=== PATIENT | male | born 1970 | race Caucasian/White ===

== ENCOUNTER 2019-02-01 15:35 | Emergency (ER) | payer OTHER ==
[~2019-02-01] VITALS: Wt 81.6 kg
[~2019-02-01 15:35] MED LIST: ACETAMINOPHEN650 M5 PO; ALLERGY10 MG PO; AMANTADINE HCL100 M1 PO; ATENOLOL50 MG PO; ATIVAN1 MG PO; BENADRYL50 MG PO; BENZTROPINE MESY2 MG PO; CLONAZEPAM1 MG PO; COGENTIN1 MG PO; DEPAKOTE ER500 MG PO; DEPAKOTE500 M1 PO; DICYCLOMINE HCL10 MG PO; DUONEB 3 MG/3 ML3 M1 INH; Depakote ER500 MG PO; GABAPENTIN300 M1 PO; GEMFIBROZIL600 MG PO; GEODON80 MG PO; HALOPERIDOL5 MG PO; HEP-FORTE1 CAP PO; HYDROXYZINE50 MG; INVEGA SUSTENN117 MG IM; INVEGA6 MG PO; LEVETIRACETAM500 M1 PO; LISINOPRIL10 MG PO; LITHIUM CARBON300 M2 PO; LITHOBID300 MG PO; LOPRESSOR25 MG PO; LORAZEPAM1 MG PO; MULTIVITAMIN1 CTB PO; MULTIVITAMIN1 TA1 PO; Mysoline50 MG PO; PRILOSEC40 MG PO; RISPERDAL3 MG PO; SENNA PLUS 50 M1 TA1 PO; TAMSULOSIN HCL0.4 MG PO; TERAZOSIN HCL5 MG PO; TRAZODONE HCL300 MG PO; TRAZODONE HYDR150 MG PO; VENTOLIN0.09 MG/AC; VERAMYST27.5 MCG/A; VITAMIN B COMPL1 CAP PO
[2019-02-01] MEDS ORDERED: Ranitidine Hyd150 MG PO (15:56)
[2019-02-01] MEDS ORDERED: NEURONTIN300 MG PO (15:56)
[2019-02-01] MEDS ORDERED: PRINIVIL20 M1 PO (15:56)
[2019-02-01] MEDS ORDERED: OMEPRAZOLE40 MG PO (15:57)
[2019-02-01] MEDS ORDERED: DEPAKOTE ER250 MG PO (15:57)
[2019-02-01] MEDS ORDERED: FLOMAX0.4 MG PO (15:58)
[2019-02-01] MEDS ORDERED: SEROQUEL300 MG PO (15:58)
[2019-02-01] MEDS ORDERED: SINGULAIR4 MG PO (15:58)
[2019-02-01] MEDS ORDERED: Depakote ER500 MG PO (15:58)
[2019-02-01 16:36] LABS: BASO # 0.1 10*3/uL (0.0-0.1); BASO % 0.6 % (0.0-1.0); EOS # 0.1 10*3/uL (0.0-0.4); EOS % 0.6 % (1.0-4.0); HEMATOCRIT 42.8 % (42.0-52.0); HEMOGLOBIN 14.7 g/dl (14.0-18.0); LYMPH # 3.8 10*3/uL (1.3-4.4); LYMPH % 31.3 % (27.0-41.0); MEAN CELL VOLUME 95.3 fl (80.0-94.0); MEAN CORPUSCULAR HGB 32.7 pg (27.0-31.0); MEAN CORPUSCULAR HGB CONC 34.3 g/dl (33.0-37.0); MEAN PLATELET VOLUME 12.1 fl (9.6-12.3); MONO % 8.5 % (3.0-9.0); NEUT # 7.2 10*3/uL (2.3-7.9); NEUT % 58.8 % (47.0-73.0); PLATELET COUNT AUTOMATED 237 10*3/uL (130-400); RED BLOOD COUNT 4.49 10*6/uL (4.50-5.90); RED CELL DISTRI WIDTH 13.7 % (0-14.5); WHITE BLOOD COUNT 12.2 10*3/uL (4.8-10.8)
[2019-02-01 16:50] LABS: BILIRUBIN NEGATIVE (NEGATIVE); BLOOD NEGATIVE (NEGATIVE); CLARITY CLEAR (CLEAR); COLOR YELLOW (YELLOW); GLUCOSE NEGATIVE (NEGATIVE); KETONE NEGATIVE (NEGATIVE); LEUKO ESTERASE NEGATIVE (NEGATIVE); NITRITE NEGATIVE (NEGATIVE); SPECIFIC GRAVITY <= 1.005 (1.005-1.030); UROBILINOGEN 0.2 E.U./dl (0.2-1.0)
[2019-02-01 16:54] LABS: ALKALINE PHOSPHATASE 66 U/L (45-117); BUN 10 mg/dl (7-24); CHLORIDE 109 mmol/L (98-107); CREATININE 0.76 mg/dL (0.70-1.30); POTASSIUM 3.7 mmol/L (3.5-5.1); SGOT/AST 16 IU/L (3-35); SGPT/ALT 35 U/L (12-78); SODIUM 142 mmol/L (136-145); TOTAL PROTEIN 7.1 gm/dL (6.4-8.2)
[2019-02-01 16:56] LABS: BACTERIA TRACE; EPITHELIAL CELLS 0-2; WBC 0-2 wbc/hpf (0-5)
[2019-02-01 16:58] LABS: URINE AMPHETAMINES < 1000 (1000ng/ml); URINE BARBITURATES < 200 (200ng/ml); URINE BENZODIAZEPINES < 200 (200ng/ml); URINE CANNABINOIDS (THC) < 50 (50ng/ml); URINE COCAINE < 300 (300ng/ml); URINE METHADONE < 300 (300ng/ml); URINE OPIATES < 300 (300ng/ml)
[2019-02-01 16:58] LABS: ACETAMINOPHEN (TYLENOL) < 5.0 ug/ml (10-30); ETHYL ALCOHOL < 3.0 mg/dl (<3)
[2019-02-01 16:59] LABS: URINE PHENCYCLIDINE < 25 (25ng/ml)
[2019-02-01 17:02] LABS: THYROID STIM HORMONE (HS) 0.983 uIU/ml (0.358-4.75)
== END 2019-02-02 00:20 | disposition home health service (06) ==
LOC: ED 15:35
PROVIDERS: Emergency Medicine
DX: F25.8 Other schizoaffective disorders (principal); F91.8 Other conduct disorders; Z90.49 Acquired absence of other specified parts of digestive tract; Z79.899 Other long term (current) drug therapy; Z88.0 Allergy status to penicillin; Z88.1 Allergy status to other antibiotic agents; Z88.8 Allergy status to other drugs, medicaments and biological substances

== ENCOUNTER 2019-04-12 12:25 | Emergency (ER) | payer OTHER ==
[~2019-04-12] VITALS: Ht 185.4 cm; Wt 102.1 kg
[~2019-04-12 12:25] MED LIST changes: +DEPAKOTE ER250 MG PO; +FLOMAX0.4 MG PO; +NEURONTIN300 MG PO; +OMEPRAZOLE40 MG PO; +PRINIVIL20 M1 PO; +Ranitidine Hyd150 MG PO; +SEROQUEL300 MG PO; +SINGULAIR4 MG PO
[2019-04-12 12:49] LABS: BASO # 0.1 10*3/uL (0.0-0.1); BASO % 0.6 % (0.0-1.0); EOS # 0.1 10*3/uL (0.0-0.4); HEMATOCRIT 44.2 % (42.0-52.0); LYMPH # 4.3 10*3/uL (1.3-4.4); LYMPH % 34.9 % (27.0-41.0); MEAN CELL VOLUME 94.4 fl (80.0-94.0); MEAN CORPUSCULAR HGB 32.1 pg (27.0-31.0); MEAN CORPUSCULAR HGB CONC 33.9 g/dl (33.0-37.0); MEAN PLATELET VOLUME 10.8 fl (9.6-12.3); MONO # 0.7 10*3/uL (0.1-1.0); MONO % 5.6 % (3.0-9.0); NEUT # 7.1 10*3/uL (2.3-7.9); NEUT % 57.3 % (47.0-73.0); PLATELET COUNT AUTOMATED 244 10*3/uL (130-400); RED BLOOD COUNT 4.68 10*6/uL (4.50-5.90); RED CELL DISTRI WIDTH 13.2 % (0-14.5); WHITE BLOOD COUNT 12.4 10*3/uL (4.8-10.8)
[2019-04-12 13:00] LABS: BUN 8 mg/dl (7-24); CHLORIDE 105 mmol/L (98-107); CREATININE 0.76 mg/dL (0.70-1.30); POTASSIUM 4.1 mmol/L (3.5-5.1); SODIUM 139 mmol/L (136-145)
[2019-04-12 13:00] LABS: BILIRUBIN NEGATIVE (NEGATIVE); BLOOD NEGATIVE (NEGATIVE); CLARITY CLEAR (CLEAR); COLOR YELLOW (YELLOW); GLUCOSE NEGATIVE (NEGATIVE); KETONE NEGATIVE (NEGATIVE); LEUKO ESTERASE NEGATIVE (NEGATIVE); NITRITE NEGATIVE (NEGATIVE); SPECIFIC GRAVITY <= 1.005 (1.005-1.030); UROBILINOGEN 0.2 E.U./dl (0.2-1.0)
[2019-04-12 13:03] LABS: ACETAMINOPHEN (TYLENOL) < 5.0 ug/ml (10-30); ETHYL ALCOHOL < 3.0 mg/dl (<3)
[2019-04-12 13:07] LABS: URINE AMPHETAMINES < 1000 (1000ng/ml); URINE BARBITURATES < 200 (200ng/ml); URINE BENZODIAZEPINES < 200 (200ng/ml); URINE CANNABINOIDS (THC) < 50 (50ng/ml); URINE COCAINE < 300 (300ng/ml); URINE METHADONE < 300 (300ng/ml); URINE OPIATES < 300 (300ng/ml)
[2019-04-12 13:11] LABS: URINE PHENCYCLIDINE < 25 (25ng/ml)
[2019-04-12 13:15] LABS: EPITHELIAL CELLS 0-2
== END 2019-04-12 22:07 | disposition home health service (06) ==
LOC: ED 12:25
PROVIDERS: Emergency Medicine
DX: F25.9 Schizoaffective disorder, unspecified (principal); Z88.0 Allergy status to penicillin; Z88.1 Allergy status to other antibiotic agents; Z88.8 Allergy status to other drugs, medicaments and biological substances; Z79.899 Other long term (current) drug therapy; Z90.49 Acquired absence of other specified parts of digestive tract

== ENCOUNTER 2024-12-31 22:08 | Emergency (ER) | payer OTHER ==
[~2024-12-31] VITALS: Wt 120.2 kg
[2024-12-31 23:52] LABS: BASO % 0.4 % (0.0-1.0); EOS # 0.2 10*3/uL (0.0-0.4); EOS % 1.8 % (1.0-4.0); HEMATOCRIT 41.7 % (42.0-52.0); MEAN CELL VOLUME 94.8 fl (80.0-94.0); MEAN CORPUSCULAR HGB 31.4 pg (27.0-31.0); MEAN CORPUSCULAR HGB CONC 33.1 g/dl (33.0-37.0); MEAN PLATELET VOLUME 10.8 fl (9.6-12.3); MONO % 9.9 % (3.0-9.0); NEUT # 4.1 10*3/uL (2.3-7.9); NEUT % 42.2 % (47.0-73.0); PLATELET COUNT AUTOMATED 175 10*3/uL (130-400); RED CELL DISTRI WIDTH 14.2 % (0-14.5); WHITE BLOOD COUNT 9.7 10*3/uL (4.8-10.8)
[2025-01-01 00:12] LABS: BUN 11 mg/dl (9-23); CHLORIDE 103 mmol/L (98-107); POTASSIUM 4.2 mmol/L (3.4-5.1)
[2025-01-01 04:08] LABS: BILIRUBIN Negative (Negative); BLOOD Negative (Negative); COLOR Yellow (Yellow); GLUCOSE 3+ (Negative); KETONE Negative (Negative); LEUKO ESTERASE Negative (Negative); NITRITE Negative (Negative)
[2025-01-01 04:22] LABS: CLARITY Clear (Clear); EPITHELIAL CELLS 16-20; RBC 0-2 rbc/hpf (0-2); WBC 0-2 wbc/hpf (0-5)
[2025-01-01 04:28] LABS: URINE AMPHETAMINES Negative (1000ng/ml); URINE BARBITURATES Negative (200ng/ml); URINE BENZODIAZEPINES Negative (200ng/ml); URINE CANNABINOIDS (THC) Negative (50ng/ml); URINE COCAINE Negative (300ng/ml); URINE METHADONE Negative (300ng/ml); URINE OPIATES Negative (300ng/ml); URINE PHENCYCLIDINE Negative (25ng/ml)
[2025-01-01] MEDS ORDERED: VIBRAMYCIN100 MG PO (06:06)
[2025-01-01] MEDS ORDERED: Doxycycline Hyclate 100 MG CAPSULE PO ONE (06:10)
== END 2025-01-01 06:30 | disposition home or self-care (01) ==
LOC: ED 22:08
PROVIDERS: Emergency Medicine
DX: L03.115 Cellulitis of right lower limb (principal); I10 Essential (primary) hypertension; J45.909 Unspecified asthma, uncomplicated; K21.9 Gastro-esophageal reflux disease without esophagitis; Z79.899 Other long term (current) drug therapy; Z88.0 Allergy status to penicillin; Z88.1 Allergy status to other antibiotic agents; Z88.8 Allergy status to other drugs, medicaments and biological substances; Z90.49 Acquired absence of other specified parts of digestive tract